=== PATIENT | male | born 1960 | race Caucasian/White ===

== ENCOUNTER → 2020-07-10 | Outpatient (CLI) | payer BC ==
[~2020-07-10] MED LIST: BACL10TA PO; DOCU-109 PO; LOSA-73 PO; OXYC1TAB19 PO; SIMV40TA18 PO
[2020-07-10 10:49] LABS: BASO # 0.1 x10^3/uL (0.0-0.2); BASO % 1 % (0-3); EOS # 0.1 x10^3/uL (0.0-0.7); EOS % 1 % (0-3); HEMATOCRIT 41.6 % (39.0-53.0); HEMOGLOBIN 14.5 g/dL (13.0-17.5); LYMPH # 1.3 x10^3/uL (1.0-4.8); LYMPH % 19 % (24-48); MEAN CORPUSCULAR HEMOGLOBIN 34 pg (25-35); MEAN CORPUSCULAR HGB CONC 35 g/dL (31-37); MEAN CORPUSCULAR VOLUME 97 fL (79-100); MONO # 0.9 x10^3/uL (0.0-1.1); MONO % 14 % (0-9); NEUT # 4.4 x10^3/uL (1.8-7.7); NEUT % 65 % (31-73); PLATELET COUNT 233 x10^3/uL (140-400); RED BLOOD COUNT 4.28 x10^6/uL (4.30-5.70); WHITE BLOOD COUNT 6.8 x10^3/uL (4.0-11.0)
[2020-07-10 11:03] LABS: ALBUMIN 3.3 g/dL (3.4-5.0); ALBUMIN/GLOBULIN RATIO 0.9 (1.0-1.7); CALCIUM 8.8 mg/dL (8.5-10.1); CREATININE 0.9 mg/dL (0.7-1.3); GFR 85.8; POTASSIUM 4.8 mmol/L (3.5-5.1); TOTAL BILIRUBIN 0.5 mg/dL (0.2-1.0); TOTAL PROTEIN 6.8 g/dL (6.4-8.2)
== END ==
LOC: SURGPAT 09:24
PROVIDERS: ATTEND Neurological Surgery
DX: Z01.812 Encounter for preprocedural laboratory examination (principal); M51.16 Intervertebral disc disorders with radiculopathy, lumbar region; M48.062 Spinal stenosis, lumbar region with neurogenic claudication; Z20.822 Contact with and (suspected) exposure to COVID-19
CPT/HCPCS: 80053; 85025; 87641; U0003

== ENCOUNTER 2020-07-13 07:28 | Day surgery (SDC) | payer BC ==
--- NOTE | 2020-07-12 09:54 | HP ---
ADMIT DATE: 07/13/2020 PREOPERATIVE HISTORY AND PHYSICAL HISTORY OF PRESENT ILLNESS: The patient is a pleasant 60-year-old who is having difficulty with low back pain, is a stabbing pain along with very severe pain which radiates into his right leg. That pain is in the right hip, right anterior lateral thigh down the anterolateral leg. He says the right leg feels weak. The problem started in 04/2020. Prior to that, he was doing well. He has undergone a total of 3 lumbar surgeries, most recently in 2019. He did well after each of those surgeries. Recently, he is having difficulty with standing and walking. He says his pain can reach 10/10. The pain is constant. He has difficulty finding any kind of relief. He does use a heating pad in a recliner to help. He is taking oxycodone and Toradol recently, which has helped. He had a Medrol Dosepak without benefit. He has had multiple chiropractic treatments without help. He also underwent an epidural steroid injection with no significant lasting relief. CURRENT MEDICATIONS: Simvastatin, losartan, baclofen, oxycodone, Toradol. PAST MEDICAL HISTORY: Hypertension. ALLERGIES: TETANUS. PAST SURGICAL HISTORY: Lumbar surgery as mentioned above, cervical laminectomy, shoulder surgery in 2009 and 2010. SOCIAL HISTORY: Retired. Quit smoking more than 10 years ago. Never drinks alcohol. REVIEW OF SYSTEMS: A 12-point review of systems was performed and is noncontributory except that mentioned above. PHYSICAL EXAMINATION: GENERAL: Alert, pleasant, in no acute distress. HEAD: Normocephalic, atraumatic. SKIN: Warm and dry, well-healed lumbar incision. MUSCULOSKELETAL: Lumbar paraspinal muscle bulk is normal, restricted range of motion of the lumbar spine, [id number] tenderness of the lower lumbar spine with palpation, normal range of motion of the lower extremities bilaterally. EXTREMITIES: No clubbing, cyanosis or edema. NEUROLOGIC: Alert and oriented x 3, normal recent and remote memory. Strength is 5/5 in bilateral lower extremities except 4/5 right hip flexor and 4+/5, right quadriceps, sensory was intact to light touch bilaterally in the lower extremities except for decrease in the distal right anterior thigh and over the right knee, reflexes were present and symmetric in the lower extremities bilaterally except for an absent right knee jerk, positive straight leg raising on the right with back and right posterior thigh pain, negative straight leg raising on the left, antalgic gait. IMAGING: I reviewed a lumbar MRI scan. On that study, there are postoperative changes at L2-L3, L3-L4, and L4-L5. At L1-L2, there is a large right lateral disk extrusion which extends inferiorly into severely narrows the right lateral recess and neural foramen as well as there is moderate canal stenosis. ASSESSMENT AND PLAN: Hilario has a large right-sided herniated disk at L1-L2 with severe pain along with weakness in his right leg. My recommendation is that he undergo a lumbar microsurgery at L1-L2. I did discuss this with him in detail including the risk and the expected postoperative course and the technique. He understands and would like to go ahead. NICHOLE KOEHLER MD DR: KATIUSKA/nigel JOB#: [id number] / [id number] STAR
[~2020-07-13] VITALS: Ht 175.3 cm; Wt 77.1 kg
[~2020-07-13 07:28] MED LIST changes: +BACITRACIN 50,000 UNIT in IV NORMAL SALINE 1000ML BAG 1,000 ML IRR ONE; +BUPIVACAINE-EPI 0.5%-1:200000 MPF 30 ML VIAL. ONE; -DOCU-109 PO; +GELATIN SPONGE SIZE 100. ONE; +IV RINGERS,LACTATED 1000ML 1,000 ML IV SCH; +KETOROLAC 60 MG/2 ML VIAL. ONE; +PROCHLORPERAZINE 10 MG/2 ML VIAL. IVP PRN; +THROMBIN TOPICAL 20,000 UNIT SPRAY.SYRN KIT TP ONE; +fentaNYL PF VIAL 100 MCG/2 ML VIAL IVP PRN
--- NOTE | 2020-07-13 08:02 | EKG ---
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
[2020-07-13] MEDS ORDERED: MIDAZOLAM HCL/PF 2 MG/2 ML VIAL. ONE (08:36)
[2020-07-13] MEDS ORDERED: fentaNYL PF VIAL 100 MCG/2 ML VIAL ONE ×2 (08:36→11:39)
[2020-07-13] MEDS ORDERED: REMIFENTANIL 2 MG VIAL. IV ONE (08:36)
[2020-07-13] MEDS ORDERED: ROCURONIUM 50 MG/5 ML VIAL. ONE (08:38)
[2020-07-13] MEDS ORDERED: PROPOFOL 50 ML IV ONE (08:39)
[2020-07-13] MEDS ORDERED: ONDANSETRON PF 4 MG/2 ML VIAL. ONE (08:39)
[2020-07-13] MEDS ORDERED: LIDOCAINE 2% PF 5 ML VIAL. ONE (08:39)
[2020-07-13] MEDS ORDERED: PROPOFOL 10 MG/ML (20ML) VIAL. IV ONE (08:39)
[2020-07-13] MEDS ORDERED: DEXAMETHASONE SOD PHOS 4 MG/ML VIAL ONE (08:40)
[2020-07-13] MEDS ORDERED: ePHEDrine PF IN SALINE 50 MG/10 ML SYRINGE. IV ONE (09:32)
[2020-07-13] MEDS ORDERED: PHENYLEPHRINE 10 MG/ML VIAL. ONE ×2 (10:11)
[2020-07-13] MEDS ORDERED: GLYCOPYRROLATE 1 MG/5 ML VIAL. ONE (11:16)
[2020-07-13] MEDS ORDERED: NEOSTIGMINE METHYLSULFATE 5 MG/5 ML SYRINGE. ONE (11:16)
[2020-07-13] MEDS ORDERED: DESFLURANE > 120 MINUTES IH ONE (11:31)
[2020-07-13] MEDS ORDERED: DOCU-109 PO (11:35)
--- NOTE | 2020-07-13 11:36 | DISCH ---
DISCHARGE INSTRUCTIONS Condition on Discharge Condition on Discharge: Stable Activity After Discharge Activity Instructions for Disc: Resume previous activity, Activity as raiza ated, Avoid exertion Other activity instructions: no driving for a week Bathing Instructions: Shower-keep dressing dry Diet after Discharge Additional Diet Restrictions: resume home diet Wound Incision Care Wound/Incision Care: Ice to area for comfort Other wound/incision instructi: may remove dressing in 48 hours if dry then may shower, no soaking Contacting the DRJosé Luis after DC Call your doctor for: Concerns you may have Follow-Up Follow up with: Dr. Koehler's nurse in 2 weeks [phone] NICHOLE KOEHLER MD Jul 13, 2020 11:36
[2020-07-13] MEDS ORDERED: MORPHINE SULFATE 2 MG/ML VIAL. ONE (11:47)
[2020-07-13] MEDS: MORPHINE SULFATE 2 MG/ML VIAL. IVP PRN ×2 (11:51→12:01)
--- NOTE | 2020-07-13 12:03 | OP ---
DATE OF SURGERY: 07/13/2020 PREOPERATIVE DIAGNOSES: Herniated lumbar disc L1-L2 right with severe right lumbar radiculopathy. POSTOPERATIVE DIAGNOSES: Herniated lumbar disc, L1-L2, right with severe right lumbar radiculopathy. OPERATION PERFORMED: Hemilaminotomy and microdiscectomy L1-L2, right. The operation was done with EMG monitoring, SSEP monitoring, fluoroscopy, microscopic dissection. SURGEON: Venancio Koehler M.D. PORTABLE MACHINE SANDER: ORI Alonso assisted with the surgery. She assisted with the exposure, the microdiscectomy as well as the closure. OPERATIVE INDICATIONS: The patient is a pleasant 60-year-old man who developed severe intractable back and right leg, which failed conservative measures including epidural steroids. On imaging studies, he had a large herniated disc at L1-L2, which was with a large inferior fragment and I recommended lumbar microsurgery. I spoke with him about the surgery, the risks, technique and expected postoperative course and he wished to go ahead. DESCRIPTION OF PROCEDURE: Following general endotracheal anesthesia, the patient was positioned prone on the Joselo table. His lumbar region was prepped and draped in the standard fashion. ANDRÉS hose and AV impulse boots were applied for DVT prophylaxis. A microscope was draped. Fluoroscopy was draped and brought into the field. Monitoring was established. Ancef 2 grams was given in less than 1 hour prior to initiation of the surgery. Using fluoroscopic guidance, an incision was made in the midline above and below the L1-L2 interspace. I dissected down through subcutaneous tissue, reflected the paraspinal muscles and placed a Dolores micro disc retractor, brought in the microscope and the remainder of surgery done with microscope using microscopic technique. I burred down a hemilaminotomy and then performed a very generous foraminotomy. I trimmed away thickened ligamentum flavum, exposing the dura and the exiting root and I gently retracted the root medially, it was scarred and compressed. I gently using the blunt hook and micro blunt hook to free the dura from the underlying scar and then worked inferiorly, there was a subligamentous disc fragment. I grasped and began to remove multiple fragments. I carried my dissection quite far inferiorly and followed the root around the pedicle and I assured myself that the root was very free. I then moved back to disc space. The disc was bulging significantly and I trimmed away some of the large bulging component as well as remove disc beneath this and as I worked, the area was very well decompressed and root was quite free. I irrigated copiously with antibiotic solution. I used bone wax for any bone bleeding as well as a bipolar cautery. I then irrigated copiously, removing the retractor, irrigated again, obtained hemostasis in the muscle, which was without difficulty and then I closed the wound in layers with absorbable suture and the skin was closed with 4-0 subcuticular stitch. The surgery went very well and the patient was awakened uneventfully. I was quite pleased with the surgery. VENANCIO KOEHLER MD DR: DYLAN/nigel JOB#: [id number] / [id number] STAR
[2020-07-13] MEDS ORDERED: HYDROmorphone 2 MG/ML VIAL ONE (12:10)
[2020-07-13] MEDS: HYDROmorphone 2 MG/ML VIAL IVP PRN ×4 (12:13→12:50)
[2020-07-13] MEDS ORDERED: oxyCODONE/APAP 7.5/325 1 TAB TABLET PO ONE ×2 (12:15)
[2020-07-13 13:02] VITALS: BP 120/57
--- NOTE | 2020-07-17 18:13 | PATHOLOGY ---
[facility] Accession Number: [id number] . 01 Material submitted: . back - LUMBAR DISC AND DECOMPRESSION. Modifiers: LUMBAR DISC . 01 Clinical history: . PRE-OPERATIVE DIAGNOSIS: STENOSIS, LUMBAR HERNIATED DISC SEE REQ OPERATIVE PROCEDURE: LUMBAR MICRODISCECTOMY L1-2 POST-OPERATIVE DIAGNOSIS: PENDING . 02 Diagnosis: Segments of fibrocartilaginous, adipose, and skeletal muscle tissue and bone, lumbar disc and decompression: - Degenerative changes of fibrocartilaginous tissue. (JPM:[facility] 07/17/2020) [facility] 07/17/2020 1300 Local . 02 Comment: There is no evidence of an acute inflammatory process or malignancy. (JPM:[facility] 07/17/2020) . 02 Electronically signed: . Tommy Delgadillo MD, Pathologist NPI- [id number] . 01 Gross description: . The specimen is received in formalin, labeled "Hilario Hurd, lumbar disc and decompression". Received are multiple segments of pale ruvalcaba gritty tissue admixed with small fragments of bone measuring 4.2 x 4.1 x 1.0 cm in aggregate dimensions. The specimen is submitted representatively in cassette A1, following light decalcification. (CAA; 07/14/2020) QAC/QAC 07/14/2020 1618 Local . 02 Pathologist provided ICD-10: M51.26 . 02 CPT . 108129, [id number] Specimen Comment: A courtesy copy of this report has been sent to [phone] Specimen Comment: Report sent to Performed at: [address], [place], [place] [id number] MD Gallo Herron MD Phone: [phone] Performed at: 02 [facility] [address] [place], [place] [id number] MD Tommy Delgadillo MD Phone: [phone]
== END 2020-07-13 13:47 | disposition home or self-care (01) ==
LOC: SURG 07:28
PROVIDERS: ATTEND Neurological Surgery
DX: M51.16 Intervertebral disc disorders with radiculopathy, lumbar region (principal); M79.604 Pain in right leg; M48.061 Spinal stenosis, lumbar region without neurogenic claudication; I10 Essential (primary) hypertension; Z79.899 Other long term (current) drug therapy; Z98.890 Other specified postprocedural states; Z87.891 Personal history of nicotine dependence; Z88.7 Allergy status to serum and vaccine
CPT/HCPCS: 63030; 88304; 88311; 93005; 97161; A4213; A4364; A4556; A4930; A6254; A6258; J0690; J0780; J1100; J1170; J1885; J2250; J2270; J2370; J2405; J2704; J2710; J3010; J3490; J7030; 76000; A4222; A4223; A4657